=== PATIENT | female | born 1980 | race Caucasian/White ===

== ENCOUNTER 2019-06-02 17:50 | Emergency (ER) | payer OTHER ==
[~2019-06-02] VITALS: Ht 165.1 cm; Wt 83.9 kg
[~2019-06-02 17:50] MED LIST: ASPI81CH PO; BUPR150T2 PO; Bupropion Xl150 MG PO; CEPH500 PO; CETI5 PO; ESCI20 PO; Humalog100 UNIT/1 SC; INSLI100I; LEVO-T175 MCG PO; LEVSOD100 PO; LEVSOD150 PO; ONDA4 PO; ONDA4ODT MM; SYNTHROID175 MCG PO; Zofran4 MG PO
[2019-06-02 18:24] LABS: Source, Urine Clean Catch
[2019-06-02 18:26] LABS: BASOPHILS ABSOLUTE AUTO 0.01 K/mm3 (0.00-0.23); BASOPHILS PERCENT AUTO 0 % (0-2); EOSINOPHILS ABSOLUTE AUTO 0.01 K/mm3 (0.00-0.68); EOSINOPHILS PERCENT AUTO 0 % (0-6); Hematocrit 34.8 % (33.0-51.0); Hemoglobin 10.3 g/dL (11.5-16.0); IMMATURE GRAN ABSOLUTE AUTO 0.03 K/mm3 (0.00-0.10); IMMATURE GRAN PERCENT AUTO 0 % (0-1); LYMPHOCYTES ABSOLUTE AUTO 1.31 K/mm3 (0.84-5.20); LYMPHOCYTES PERCENT AUTO 16 % (21-46); MONOCYTES ABSOLUTE AUTO 0.22 K/mm3 (0.16-1.47); MONOCYTES PERCENT AUTO 3 % (4-13); Mean Corpuscular HGB 21.2 pg (26.0-34.0); Mean Corpuscular HGB Conc 29.6 g/dL (31.5-36.5); Mean Corpuscular Volume 72 fL (80-100); Mean Platelet Volume 9.1 fL (9.1-12.4); NEUTROPHILS ABSOLUTE AUTO 6.52 K/mm3 (1.96-9.15); NEUTROPHILS PERCENT AUTO 81 % (41-73); Platelet Count 509 K/mm3 (150-400); RDW Coefficient Variation 18.3 % (11.7-14.2); RDW Standard Deviation 47.1 fL (35.1-46.3); Red Blood Cell Count 4.85 M/mm3 (3.80-5.20)
[2019-06-02 18:28] LABS: Base Excess Venous -9.2 mmol/L; Bicarbonate Venous 17.6 mmol/L (24.0-30.0); PCO2 Venous 34.9 mmHg (38-42); PO2 Venous 72.9 mmHg (38-42)
[2019-06-02 18:30] LABS: Appearance, Urine Clear (Clear); Bilirubin, Urine Neg (Neg); Blood, Urine 5+ (Neg); Color, Urine Yellow (P-Yellow); Glucose Qualitative, Urine 4+ (Neg); Ketones, Urine 4+ (Neg); Leukocyte Esterase, Urine Neg (Neg); Nitrite, Urine Neg (Neg); Protein, Urine Neg (Neg); Urobilinogen, Urine NORM (Normal)
[2019-06-02 18:40] LABS: Bacteria Few /hpf; Mucus Light (0-Heavy); Red Blood Cells, Urine 50-100 /hpf (0-2); Squamous Epithelial Cells Rare /hpf (Few); White Blood Cells, Urine Not Seen /hpf (0-5)
[2019-06-02 18:49] LABS: Alanine Aminotransfer (ALT/SGP 35 U/L (12-78); Albumin, Blood 4.3 g/dL (3.4-5.0); Albumin/Globulin Ratio 1.1 (0.8-1.8); Alk Phos 109 U/L (50-136); Anion Gap 16 mmol/L (6-16); Aspartate Aminotrans (AST/SGOT 18 U/L (12-37); Bilirubin, Total 0.8 mg/dL (0.1-1.0); Blood Urea Nitrogen 20 mg/dL (8-24); Bun/Creatinine Ratio 33.4 (12.0-20.0); CO2, Blood 17 mmol/L (21-32); Calcium, Blood 9.7 mg/dL (8.5-10.1); Chloride, Blood 97 mmol/L (98-108); Glomerular Filtration Rate >60 (60-); Glucose, Blood 461 mg/dL (70-99); Potassium, Blood 4.2 mmol/L (3.5-5.5); Sodium, Blood 130 mmol/L (136-145); Total Protein, Blood 8.3 g/dL (6.4-8.2)
[2019-06-02 21:39] LABS: Base Excess Venous -5.8 mmol/L; Bicarbonate Venous 19.7 mmol/L (24.0-30.0); PCO2 Venous 44.2 mmHg (38-42); pH Blood Venous 7.28 (7.34-7.37)
[2019-06-02 22:28] LABS: Anion Gap 9 mmol/L (6-16); Blood Urea Nitrogen 15 mg/dL (8-24); CO2, Blood 23 mmol/L (21-32); Calcium, Blood 9.1 mg/dL (8.5-10.1); Chloride, Blood 103 mmol/L (98-108); Creatinine, Blood 0.58 mg/dL (0.40-1.00); Glomerular Filtration Rate >60 (60-); Glucose, Blood 239 mg/dL (70-99); Potassium, Blood 3.9 mmol/L (3.5-5.5); Sodium, Blood 135 mmol/L (136-145)
== END 2019-06-02 22:54 | disposition home or self-care (01) ==
LOC: ER 17:50
PROVIDERS: Emergency Medicine; Physician Assistant
DX: E10.65 Type 1 diabetes mellitus with hyperglycemia (principal); E03.9 Hypothyroidism, unspecified; Z88.2 Allergy status to sulfonamides; Z79.82 Long term (current) use of aspirin; Z79.899 Other long term (current) drug therapy
CPT/HCPCS: 36415; 80048; 80053; 81001; 82803; 82947; 85025; 93005; 93010; 96361; 96374; 99283-25; J2405; J7120

== ENCOUNTER → 2020-05-01 | Outpatient (CLI) | payer OTHER ==
[2020-05-03 15:07] LABS: HPV 16 Negative (Negative); HPV 18 Negative (Negative); HPV OTHER HR TYPES Negative (Negative)
== END | disposition home or self-care (01) ==
LOC: LAB 20:19 → LAB SHORT 20:19
PROVIDERS: Obstetrics & Gynecology
DX: Z01.419 Encounter for gynecological examination (general) (routine) without abnormal findings (principal)
CPT/HCPCS: 87624; G0123

== ENCOUNTER → 2022-02-12 | Outpatient (CLI) | payer OTHER | LOC: LAB SHORT 10:00 → LAB 10:00 | DX: N39.0 Urinary tract infection, site not specified (principal); B96.20 Unspecified Escherichia coli [E. coli] as the cause of diseases classified elsewhere | CPT/HCPCS: 87077; 87086; 87186 ==

== ENCOUNTER → 2022-02-28 | Outpatient (CLI) | payer OTHER | END | disposition home or self-care (01) | LOC: LAB 11:30 → LAB SHORT 11:30 | DX: N39.0 Urinary tract infection, site not specified (principal) | CPT/HCPCS: 87077; 87086; 87186 ==

== ENCOUNTER 2024-02-08 12:46 | Day surgery (SDC) | payer OTHER ==
[~2024-02-08] VITALS: Ht 165.1 cm; Wt 92.0 kg
[~2024-02-08 12:46] MED LIST changes: +BUPR150ER PO; -Bupropion Xl150 MG PO; -Humalog100 UNIT/1 SC; +INSULIN LI100 UNIT/5 SC
[2024-02-08] MEDS ORDERED: CeFAZolin Sodium 2,000 MG VIAL ONE (12:49)
[2024-02-08] MEDS ORDERED: NS 500 ML IV ONE ×2 (12:51→13:32)
[2024-02-08] MEDS ORDERED: LEVOTHYROXINE175 MC9 PO (13:16)
[2024-02-08] MEDS ORDERED: LIVALO2 MG PO (13:17)
--- NOTE | 2024-02-08 13:35 | NUR ---
02/08/24 [id number] Fariba Bartholomew PT. HAS AN INSULIN PUMP INTACT. HAS HAD SINCE 8 YRS. OLD
[2024-02-08] MEDS ORDERED: FERSU300 (13:45)
[2024-02-08] MEDS ORDERED: FentaNYL Citrate 50 MCG/ML 2 ML Injection ONE ×2 (14:32→15:38)
[2024-02-08] MEDS ORDERED: Midazolam HCl 1MG / ML 2ML Vial ONE (14:32)
[2024-02-08] MEDS ORDERED: propofoL 20 ML IV ONE (14:32)
[2024-02-08] MEDS ORDERED: Lidocaine 1%-Epineph 1:100000 20 ML MDV ONE (15:06)
[2024-02-08] MEDS ORDERED: HYDROcodone 5-APAP 325 TAB ONE (15:52)
[2024-02-08 16:38] VITALS: BP 132/95
== END 2024-02-08 16:35 | disposition home or self-care (01) ==
LOC: ORSCSDS 12:46
PROVIDERS: Orthopaedic Surgery
PROC: 0HBFXZZ Excision of Right Hand Skin, External Approach (ICD-10-PCS; principal; 2024-02-08 14:15)
DX: T81.41XA Infection following a procedure, superficial incisional surgical site, initial encounter (principal); I25.10 Atherosclerotic heart disease of native coronary artery without angina pectoris; E78.5 Hyperlipidemia, unspecified; E03.9 Hypothyroidism, unspecified; E10.8 Type 1 diabetes mellitus with unspecified complications; Z96.41 Presence of insulin pump (external) (internal); Z79.4 Long term (current) use of insulin; F41.9 Anxiety disorder, unspecified; F32.A Depression, unspecified; Z79.899 Other long term (current) drug therapy; E66.9 Obesity, unspecified; Z68.33 Body mass index [BMI] 33.0-33.9, adult
CPT/HCPCS: 82947; 87070; 87075; 87205; 88305; A9270; J0690; J2250; J2704; J3010; J7040

== ENCOUNTER → 2024-02-12 | Outpatient (CLI) | payer OTHER ==
[~2024-02-12] MED LIST changes: +FERSU300; +LEVOTHYROXINE175 MC9 PO; +LIVALO2 MG PO
[2024-02-16 11:54] LABS: Stool Occult Bld Immuno 1 Negative (NEGATIVE)
== END ==
LOC: LAB 12:49 → LAB SHORT 12:49
PROVIDERS: Family Medicine
DX: D50.9 Iron deficiency anemia, unspecified (principal)
CPT/HCPCS: 82274